=== PATIENT | female | born 1940 | race Caucasian/White ===

== ENCOUNTER → 2020-08-27 | Outpatient (CLI) | payer BC, MEDICARE ==
[~2020-08-27] MED LIST: ATOR10TA9 PO; DULO60CA56 PO; LEVO50CA4 PO; METO-282 PO; OXYB5TAB10 PO
== END | disposition home or self-care (01) ==
LOC: CVU 09:54
PROVIDERS: ATTEND Internal Medicine Cardiovascular Disease
DX: I08.2 Rheumatic disorders of both aortic and tricuspid valves (principal); I65.23 Occlusion and stenosis of bilateral carotid arteries; I48.0 Paroxysmal atrial fibrillation; I10 Essential (primary) hypertension; R42 Dizziness and giddiness
CPT/HCPCS: 93306; 93356; 93880

== ENCOUNTER → 2020-09-02 | Outpatient (CLI) | payer BC, MEDICARE ==
[~2020-09-02] MED LIST changes: +REGADENOSON 0.4 MG/5 ML SYRINGE ONE
== END | disposition home or self-care (01) ==
LOC: CFH 12:43
PROVIDERS: ATTEND Internal Medicine Cardiovascular Disease
DX: I48.0 Paroxysmal atrial fibrillation (principal); R07.9 Chest pain, unspecified; R42 Dizziness and giddiness
CPT/HCPCS: 78452; 93017; A9502; J2785

== ENCOUNTER 2020-10-02 08:50 | Day surgery (SDC) | payer MEDICARE ==
[~2020-10-02 08:50] MED LIST changes: -REGADENOSON 0.4 MG/5 ML SYRINGE ONE
[2020-10-02] MEDS ORDERED: LIDOCAINE 2%, 20ML SQ PRN (09:30)
[2020-10-02] MEDS ORDERED: LIDOCAINE 2%, 20ML ONE (09:53)
== END 2020-10-02 10:26 | disposition home or self-care (01) ==
LOC: CACL 08:50
PROVIDERS: ATTEND Internal Medicine Cardiovascular Disease
DX: I48.0 Paroxysmal atrial fibrillation (principal); E78.5 Hyperlipidemia, unspecified; E03.9 Hypothyroidism, unspecified; Z79.899 Other long term (current) drug therapy; Z87.891 Personal history of nicotine dependence; Z72.89 Other problems related to lifestyle; Z98.890 Other specified postprocedural states
CPT/HCPCS: 33285; C1764

== ENCOUNTER 2021-03-16 11:40 | Emergency (ER) | payer MEDICARE ==
[~2021-03-16] VITALS: Ht 165.1 cm; Wt 60.5 kg
[2021-03-16] MEDS ORDERED: LEVO50TA5 PO (12:30)
[2021-03-16] MEDS ORDERED: FLUO20CA19 PO (12:30)
[2021-03-16] MEDS ORDERED: OLAN2.5T10 PO (12:30)
[2021-03-16] MEDS ORDERED: LEVO25TA4 PO (12:30)
[2021-03-16] MEDS ORDERED: FLUO20TA25 PO (12:30)
[2021-03-16] MEDS ORDERED: FAMO40TA61 PO (12:30)
--- NOTE | 2021-03-16 12:31 | NUR ---
PT AMBULATORY TO ROOM FROM TRIAGE. HX OF DEMENTIA, FAMILY MEMBER AT BEDSIDE. RPTS INCREASED WEAKNESS, CONFUSION OVER PAST FEW DAYS. PT WITH HX OF UTI WITH SAME SYMPTOMS. CALL LIGHT W/I REACH, NAD NOTED
[2021-03-16 13:03] LABS: BASOPHILS % (AUTO) 2 % (0-1); EOSINOPHILS % (AUTO) 2 % (1-7); LYMPHOCYTES % (AUTO) 36 % (22-44); MEAN CORPUSCULAR HEMOGLOBIN 31.1 pg (27.0-34.8); MEAN CORPUSCULAR HGB CONC 34.1 g/dL (32.4-35.8); MEAN PLATELET VOLUME 8.7 fL (7.4-10.4); MONOCYTES % (AUTO) 9 % (2-9); NEUTROPHILS % (AUTO) 52 % (42-75); PLATELET COUNT 206 x10^3/uL (130-400); RED BLOOD COUNT 4.08 x10^6/uL (3.82-5.3); RED CELL DISTRIBUTION WIDTH 13.7 % (9.6-15.2)
[2021-03-16 13:17] LABS: ALBUMIN 3.7 g/dL (3.4-5.0); ANION GAP 4 mmol/L (5-15); CHLORIDE 106 mmol/L (98-107)
[2021-03-16 13:21] LABS: ALANINE AMINOTRANSFERASE 30 U/L (12-78); ALKALINE PHOSPHATASE 82 U/L (45-117); BILIRUBIN,TOTAL 0.7 mg/dL (0.2-1.0); CREATININE 0.86 mg/dL (0.55-1.02); TOTAL PROTEIN 7.1 g/dL (6.4-8.2)
[2021-03-16 13:47] LABS: MICROSCOPIC AUTO
[2021-03-16 15:30] VITALS: BP 171/82
--- NOTE | 2021-03-16 15:42 | NUR ---
DR TORRES AT BEDSIDE. D/C POC DISCUSSED AND QUESTIONS ANSWERED.
--- NOTE | 2021-03-16 16:51 | NUR ---
LATE ENTRY FOR 1630, Patient/Caregiver given discharge instructions and they have confirmed that they understand the instructions. Patient ambulatory with steady gait. NAD, all questions answered appropriately, denies additional needs at this time. No personal belongings left in room after discharge.
== END 2021-03-16 16:52 | disposition home or self-care (01) ==
LOC: ED 12:49
DX: R41.82 Altered mental status, unspecified (principal); R53.1 Weakness; R42 Dizziness and giddiness; Z86.39 Personal history of other endocrine, nutritional and metabolic disease; Z90.710 Acquired absence of both cervix and uterus
CPT/HCPCS: 36415; 70450; 80053; 81001; 83690; 85025; 93005; 99285

== ENCOUNTER 2021-04-01 10:45 | Emergency (ER) | payer MEDICARE ==
[~2021-04-01] VITALS: Ht 165.1 cm; Wt 58.0 kg
[~2021-04-01 10:45] MED LIST changes: +FAMO40TA61 PO; +FLUO20CA19 PO; +FLUO20TA25 PO; +LEVO25TA4 PO; +LEVO50TA5 PO; +OLAN2.5T10 PO
[2021-04-01 12:26] LABS: BASOPHILS % (AUTO) 1 % (0-1); EOSINOPHILS % (AUTO) 2 % (1-7); LYMPHOCYTES % (AUTO) 29 % (22-44); MEAN CORPUSCULAR HEMOGLOBIN 30.2 pg (27.0-34.8); MEAN CORPUSCULAR HGB CONC 33.1 g/dL (32.4-35.8); MEAN PLATELET VOLUME 8.9 fL (7.4-10.4); MONOCYTES % (AUTO) 8 % (2-9); NEUTROPHILS % (AUTO) 60 % (42-75); PLATELET COUNT 260 x10^3/uL (130-400); RED BLOOD COUNT 4.33 x10^6/uL (3.82-5.3); RED CELL DISTRIBUTION WIDTH 13.8 % (9.6-15.2)
[2021-04-01 12:46] LABS: ALANINE AMINOTRANSFERASE 24 U/L (12-78); ALBUMIN 3.9 g/dL (3.4-5.0); ALKALINE PHOSPHATASE 106 U/L (45-117); BILIRUBIN,TOTAL 0.7 mg/dL (0.2-1.0); CALCIUM 11.9 mg/dL (8.5-10.1); CREATININE 0.88 mg/dL (0.55-1.02); TOTAL PROTEIN 7.6 g/dL (6.4-8.2)
[2021-04-01 12:52] LABS: ANION GAP 6 mmol/L (5-15); CHLORIDE 105 mmol/L (98-107)
[2021-04-01 13:55] LABS: MICROSCOPIC INDICATED
--- NOTE | 2021-04-01 14:30 | NUR ---
PT HAS CO LOWER BACK PAIN AND SPASMS. DENIES ANY FALLS OR TRAUMA.
[2021-04-01 14:57] VITALS: BP 181/96
--- NOTE | 2021-04-01 15:00 | NUR ---
PT SEEN BY MD SALINAS, DISCUSSED POC. TO BE DC
--- NOTE | 2021-04-01 15:43 | NUR ---
Patient given discharge instructions and they have confirmed that they understand the instructions. Patient ambulatory with steady gait.
== END 2021-04-01 15:45 | disposition home or self-care (01) ==
LOC: ED 13:42
DX: N30.00 Acute cystitis without hematuria (principal); M54.5 Low back pain; M54.6 Pain in thoracic spine; Z90.710 Acquired absence of both cervix and uterus; Z87.442 Personal history of urinary calculi
CPT/HCPCS: 36415; 72110; 80053; 81001; 83690; 85025; 87086; 99284